=== PATIENT | male | born 1950 | race Two or more races ===

== ENCOUNTER → 2021-01-28 | Outpatient (CLI) | payer BC ==
--- NOTE | 2021-01-29 09:11 | CT ---
EXAMINATION TYPE: CT sinus wo con DATE OF EXAM: 01/28/2021 COMPARISON: None HISTORY: Chronic sinusitis. CT DLP: 636.4 mGycm. Automated Exposure Control for Dose Reduction was Utilized. TECHNIQUE: CT scan of the sinuses is performed without contrast, axial images are obtained, coronal r eformatted images are also reviewed. FINDINGS: The paranasal sinuses including the frontal, ethmoid, sphenoid, and maxillary sinuses bila terally are well-aerated however, there is mucoperiosteal thickening noted in the maxillary sinus meng aterally, there are no air-fluid levels present. The ostiomeatal complex is patent bilaterally on th e coronal images. Temporomandibular joints are intact. Right frontal sinus is atrophic. The globes are intact bilateral ly. IMPRESSION: Mucoperiosteal thickening maxillary sinuses consistent with patient's history
== END | disposition home or self-care (01) ==
LOC: RADCTMAIN 16:34
PROVIDERS: ATTEND Otolaryngology
DX: J32.9 Chronic sinusitis, unspecified (principal)
CPT/HCPCS: 70486